=== PATIENT | female | born 1985 | race Caucasian/White ===

== ENCOUNTER 2020-07-23 15:08 | Observation (INO) | payer OTHER, SELFPAY ==
[2020-07-23] VITALS (8 sets, daily range): BP systolic 99–142; BP diastolic 40–61; PULSE 78–86; O2SAT 98–100; BMI 22.3
[2020-07-23 15:57] LABS: Hematocrit 32.8 % (37.0-47.0); Hemoglobin 10.8 g/dL (12.0-15.0); Mean Corpuscular HGB Conc 32.9 g/dl (32-36); Mean Corpuscular Volume 94.3 fl (80-100); Mean Platelet Volume 9.4 fl (7.4-10.4); Platelet Count Result 258 k/mm3 (150-375); Red Blood Count 3.48 M/mm3 (4.2-5.4); White Blood Count 9.7 K/mm3 (4.5-10.0)
--- NOTE | 2020-07-23 15:58 | OBADM ---
This patient, Lucrecia Keen, admitted to the OB room [facility] for observation. Patient/family oriented to hospital policies and general routines including ID bracelet, bed and alarms, visiting hours, pain management, procedures, bathroom and other care routines, personal items, smoking policy, room service/diet, and visiting hours. Patient/Family are encouraged to report perceived risks to care and to ask questions if they do not understand what they are told or what they should do.
[2020-07-23] MEDS: ACETAMINOPHEN 325 MG TABLET 650 MG PO (16:31)
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
--- NOTE | 2020-07-23 17:34 | PC.NURSE ---
1545- SPoke with patient regarding plan of care. Patient states that her 10 month old baby is and she will not be able to stay in the hospital overnight. Informed patient that she can have her baby stay with her as long as another adult stays with them. Patient stated that she will sign out AMA later this evening.
--- NOTE | 2020-07-23 17:36 | PC.NURSE ---
1730- Dr. Dean at bedside. SVE closed. Plan of care discussed with patient, blood to be drawn 6 hours after initial draw and patient may be discharged after 6 hours of monitoring.
--- NOTE | 2020-07-23 21:00 | PC.NURSE ---
Lab work drawn. Pt denies any pain. States she is ready for discharge. Pt states her 10 mos old is breastfed and she must gt home to feed as soon as possible.
[2020-07-23 21:10] LABS: Hematocrit 31.3 % (37.0-47.0); Hemoglobin 10.6 g/dL (12.0-15.0); Mean Corpuscular HGB Conc 33.9 g/dl (32-36); Mean Corpuscular Hemoglobin 32.1 pg (26-34); Mean Corpuscular Volume 94.8 fl (80-100); Mean Platelet Volume 9.3 fl (7.4-10.4); Platelet Count Result 248 k/mm3 (150-375)
--- NOTE | 2020-07-23 22:36 | PC.NURSE ---
Lab work called to Dr. Dean. Will discharge pt home.
== END 2020-07-23 21:40 | disposition home or self-care (01) ==
PROVIDERS: Admitting Provider Student in an Organized Health Care Education/Training Program; Visit Provider Student in an Organized Health Care Education/Training Program
DX: Z04.1 Encounter for examination and observation following transport accident (principal); O26.892 Other specified pregnancy related conditions, second trimester; V89.2XXA Person injured in unspecified motor-vehicle accident, traffic, initial encounter; Z3A.24 24 weeks gestation of pregnancy
CPT/HCPCS: 36415; 85027; 85460; A9270; G0378; G0379

== ENCOUNTER 2023-06-01 14:29 | Outpatient (CLI) | payer OTHER, SELFPAY ==
--- NOTE | ~2023-06-01 | MMUS_ITS ---
EXAMINATION: MM diagnostic farrukh BI w libby, US breast LT complete HISTORY: Lateral left breast mass TECHNIQUE: ML, MLO and CC 3-D tomosynthesis images of both breasts were performed and synthetic 2-D i mages were generated. CAD analysis was submitted and interpreted. High resolution complete left breas t ultrasound examination including all 4 quadrants and subareolar area was performed. COMPARISON: None BREAST PARENCHYMAL COMPOSITION: The breasts are extremely dense, which lowers the sensitivity of mamm ography. FINDINGS: MAMMOGRAPHIC FINDINGS: No suspicious mass or architectural distortion, malignant calcification, skin thickening or retractio n is detected. ULTRASOUND: In the area of complaint of lump there is an oval circumscribed sonolucency with through transmission posterior enhancement, measuring 2.4 x 5.7 x 2.5 mm, consistent with small cyst or other benign proc ess. No internal vascularity or suspicious shadowing. No suspicious mass or shadowing is detected elsewhere. IMPRESSION: 1. Benign finding 2. Routine annual mammographic screening beginning at age 40 is recommended BI-RADS Category 2: Benign finding(s). Reviewed, dictated and finalized at location A. IMPRESSION: 1. Benign finding 2. Routine annual mammographic screening beginning at age 40 is recommended BI-RADS Category 2: Benign finding(s).
== END 2023-06-01 14:30 | disposition home or self-care (01) ==
PROVIDERS: PCP Nurse Practitioner Family; Visit Provider Nurse Practitioner Family
DX: Z12.39 Encounter for other screening for malignant neoplasm of breast (principal)
CPT/HCPCS: 76641; 77062; 77066; G0279

== ENCOUNTER 2024-09-02 16:15 | Emergency (ER) | payer OTHER, SELFPAY ==
--- NOTE | 2024-09-02 16:16 | ED_ITS ---
HPI - Neck Pain/Injury General Chief Complaint: Neck Pain/Injury Stated Complaint: pain in neck Time Seen by Provider: 09/02/24 16:16 Source: patient Mode of arrival: ambulatory Limitations: no limitations History of Present Illness HPI Narrative: Lucrecia is a 39-year-old female patient presenting to the clinic today with complaints of right sided neck pain x5 days. She reports she is having pain to the right lateral neck that is radiating up into her head. Denies any headache, dizziness, or visual disturbances. No known injury to her neck. Denies any chest pain or shortness of breath. Related Data Home Medications ?Medication ?Instructions ?Recorded ?Confirmed ?Last Taken ?Type vits no.126-ferrous fum 1 tablet PO DAILY 07/23/20 07/23/20 1 Day Ago History 28 mg iron-folic acid 800 mcg ~07/22/20 tablet (Classic ) Allergies Allergy/AdvReac Type Severity Reaction Status Date / Time No Known Allergies Allergy Unverified 09/02/24 16:27 Review of Systems Review of Systems: Pertinent positives per HPI. Patient denies any fever, chills, rash, headache, visual changes, dizziness, cough, shortness of breath, chest pain, palpitations, nausea, vomiting, diarrhea, constipation, abdominal pain, or any urinary issues. PMFSH Surgical History Surgical History History of tonsillectomy Family History Family History Other Brain cancer Other Cancer of stomach Other Diabetes mellitus Other Hypertension Social History Social History Smoking status: Never smoker Alcohol intake: never Substance use: never Comments At the time of my signature, I reviewed and agree with the nursing past medical, surgical, social, and family history. There is no relevant family history pertinent to the patient complaint. Exam Narrative: General: Well-developed, well nourished, in no apparent distress Head: Normocephalic, atraumatic. Cardio: Regular rate and rhythm, s1 and s2 normal, no murmur appreciated. Resp: Clear to auscultation bilaterally, no rhonchi, rales, wheezing or rubs. Musculoskeletal: No deformity,tender to palpation over the right posterior lateral cervical musculature, pain when turning her head to the left against resistance, grossly normal range of motion, muscle strength strong and equal, peripheral pulse strong, no edema, no cyanosis, normal gait and station Course Course Emergency Course: Portions of this record may have been created with voice recognition software. Level of Care: Express Care Visit Vital Signs Vital signs: Vital signs reviewed MDM - Neck Pain/Injury MDM Narrative Medical decision making narrative: At the time of visit patient is resting comfortably on the exam table. Patient appears to be nontoxic. Plan: I suspect patient has a cervical strain. Patient is not had any injury or manipulation performed. Prescription for baclofen and Medrol Dosepak was sent to the pharmacy. Supportive measures were discussed with the patient and they voiced understanding discharge instructions and agrees to treatment plan. Return precautions reviewed Differential Diagnosis Differential diagnosis: Likely disc disorder of cervical region, whiplash injury to neck, closed subluxation of cervical spine, fracture of cervical spine without lesion of spinal cord, cervical radiculopathy, vertebral artery dissection, torticollis, cervical spondylosis and strain of neck muscle Discharge Plan Discharge Clinical Impression: Posterolateral cervical muscle strain Qualifiers: Encounter type: initial encounter Qualified Code(s): S16.1XXA - Strain of muscle, fascia and tendon at neck level, initial encounter Patient Disposition: Home Condition: Stable Instructions: Antibiotic Form, Cervical Strain (ED) Additional Instructions: Take any prescription medication only as prescribed-Medrol Dosepak and baclofen Be mindful of sedation precautions given to you if taking a muscle relaxer. May use heat or ice to the affected area Consider massage or chiropractor adjustment if this was discussed with provider May use blue emu, lidocaine patches, or asper cream to affected area- do not apply heat or ice directly over cream- can cause burn. Complete appropriate neck stretching exercises. Follow up with your PCP in 3-5 days if symptom persist. Patient Language: Pakistani Prescriptions: New methylprednisolone [Medrol (Carl)] 4 mg tablets,dose pack See Rx Instructions PO .COMPLEX Qty: 21 0RF Rx Instructions: orally per package directions baclofen 10 mg tablet 10 mg PO TID PRN (Reason: muscle spasm) 7 Days Qty: 21 0RF No Action Classic 28 mg iron- 800 mcg Tablet 1 tablet PO DAILY acetaminophen [Mapap (acetaminophen)] 325 mg Tablet 650 mg PO Q6H PRN (Reason: Mild Pain (1-3) Or Fever) 0RF Follow-up/Referrals: UNKNOWN,DOCTOR [Primary Care Provider] - Time of Disposition: 16:28 Quality NIHSS Nursing Documentation ED NIHSS nursing documentation: reviewed/agree
[2024-09-02 16:20] VITALS: BP 136/87; PULSE 99; RESP 16; TEMP 36.9; O2SAT 99
== END 2024-09-02 16:35 | disposition home or self-care (01) ==
PROVIDERS: Emergency Provider Nurse Practitioner Family
DX: S16.1XXA Strain of muscle, fascia and tendon at neck level, initial encounter (principal); X58.XXXA Exposure to other specified factors, initial encounter
CPT/HCPCS: 99213; G0463